=== PATIENT | male | born 1970 | race Caucasian/White ===

== ENCOUNTER → 2018-04-27 | Outpatient (CLI) | payer OTHER ==
--- NOTE | 2018-04-27 10:08 | Diagnostic Imaging Report ---
PROCEDURE: US abdomen complete. TECHNIQUE: Multiple real-time grayscale images were obtained over the abdomen in various projections. INDICATION: Generalized abdominal pain. The pancreas has a normal appearance. The liver is normal in size. No discrete liver mass is identified. Gallbladder is without stones or sludge. No wall thickening or pericholecystic fluid is seen. No biliary duct dilatation is identified. The right and left kidneys are unremarkable. Aorta and IVC are unremarkable. There is no ascites. IMPRESSION: Unremarkable abdominal ultrasound. Dictated by: Dictated on workstation # [id number]
== END ==
LOC: RAD 08:17
PROVIDERS: ATTEND Nurse Practitioner Family
DX: R10.84 Generalized abdominal pain (principal)
CPT/HCPCS: 76700

== ENCOUNTER → 2022-01-05 | Outpatient (CLI) | payer OTHER ==
--- NOTE | 2022-01-05 15:38 | Diagnostic Imaging Report ---
INDICATION: Soft tissue abscess. COMPARISON: Foot exam from same day. FINDINGS: Three views of the right toes were obtained and show no fractures, dislocations, or other acute bony abnormalities. Joint spaces are well maintained throughout. The soft tissues appear unremarkable. No radiopaque foreign bodies are identified. IMPRESSION: Unremarkable radiographic exam of the toes of the right foot. Please note, osteomyelitis cannot be excluded based on radiographs alone. If there is concern for osteomyelitis, MRI is recommended. If MRI is contraindicated, a triple phase bone scan could be performed. Dictated by: Dictated on workstation # [id number]
--- NOTE | 2022-01-05 20:09 | Diagnostic Imaging Report ---
INDICATION: ABSCESS RT FOOT BETWEEN 4/5 TOES SEVERE 4TH TOE BONE PAIN. TECHNIQUE: 3 views of the right foot CORRELATION STUDY: None FINDINGS: No acute fracture. There is slight blunting at the tip of the 5th distal phalanx. The remaining osseous structures are otherwise intact. Joint space is maintained. No abnormal soft tissue gas collection or radiopaque foreign body. IMPRESSION: 1. Slight blunting of the tip of distal 5th phalanx. While this may be normal variation, some degree of bony resorption including osteomyelitis is not excluded. Remaining osseous structures are otherwise intact and unremarkable. Dictated by: Dictated on workstation # [id number]
== END ==
LOC: RAD 13:42
PROVIDERS: ATTEND Nurse Practitioner Family
DX: L02.611 Cutaneous abscess of right foot (principal); M89.8X7 Other specified disorders of bone, ankle and foot
CPT/HCPCS: 73630; 73660

== ENCOUNTER → 2022-01-12 | Outpatient (CLI) | payer OTHER ==
--- NOTE | 2022-01-12 13:00 | Diagnostic Imaging Report ---
Exam: MRI right foot without contrast. Date: January 12, 2022. Indication: 51-year-old male, concern for abscess or ulcer between the fourth and fifth toes of the right foot. Right foot pain. Comparison: Radiographs January 05, 2022. Technique: Multiple noncontrast MRI sequences of the right foot were obtained. Findings: Lisfranc ligament proper is intact. The imaged portions of the peroneal tendons, anterior extensor tendons, and posterior flexor tendons are intact. There is no evidence of tenosynovitis. The visualized portions of the plantar fascia are intact. There is no identified T1 marrow signal loss or bone destruction. There is no identified marrow edema. There is no acute fracture. 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 The additional joint spaces are well preserved. There is no joint effusion. There is no identified abnormal soft tissue edema or focal fluid collection. Sensitivity for detection of abscess is somewhat reduced given lack of intravenous contrast. Impression: 1. No identified focal fluid collection or abscess. 2. No evidence of osteomyelitis. 3. Otherwise identified acute abnormality at the level of the right foot. Dictated by: Dictated on workstation # [id number]
== END ==
LOC: RAD 12:30
PROVIDERS: ATTEND Nurse Practitioner Family
DX: L02.611 Cutaneous abscess of right foot (principal); M86.271 Subacute osteomyelitis, right ankle and foot

== ENCOUNTER → 2023-05-10 | Outpatient (CLI) | payer BC, OTHER ==
[~2023-05-10] MED LIST: CATHETER FLUSH 10 ML SYR IVP PRN
--- NOTE | 2023-05-10 13:18 | Diagnostic Imaging Report ---
INDICATION: Right upper quadrant pain COMPARISON: Abdominal ultrasound of 04/27/2018 TECHNIQUE: Anterior scintigraphic imaging of the abdomen was performed after the intravenous administration of 5.39 mCi Tc-99m Choletec. FINDINGS: The upper abdomen was imaged for 60 minutes with the gamma camera. There is prompt homogeneous uptake of radiopharmaceutical by the liver. There is activity in the common duct and gallbladder by 30 minutes. Small bowel activity is seen by 20 minutes. After 60 minutes, the patient received 8 oz of ensure by mouth. After 60 minutes, the gallbladder ejection fraction was calculated to be 86% which is normal. IMPRESSION: 1. Patent common and cystic bile ducts. 2. No gallbladder dysfunction. Dictated by: Dictated on workstation # [id number]
== END ==
LOC: CARD 08:49
PROVIDERS: ATTEND Surgery
DX: R10.11 Right upper quadrant pain (principal)
CPT/HCPCS: 78227; A9537

== ENCOUNTER 2023-05-18 05:47 | Outpatient (CLI) | payer BC ==
[~2023-05-18] VITALS: Ht 167.7 cm; Wt 70.3 kg
[2023-05-19] MEDS ORDERED: FAMO-119 PO (08:10)
[2023-05-19] MEDS ORDERED: LEVO5TAB12 PO (08:10)
[2023-05-19] MEDS ORDERED: PSYL660P17 PO (08:10)
[2023-05-19] MEDS ORDERED: CLON0.252 PO (08:10)
[2023-05-19] MEDS ORDERED: CALC300T4 PO (08:13)
[2023-05-20] MEDS ORDERED: ACHD5005 PO (10:45)
[2023-05-20] MEDS ORDERED: DOCU-143 PO (10:45)
== END 2023-05-19 08:47 | disposition home or self-care (01) ==
LOC: PREOP 05:47
PROVIDERS: ATTEND Surgery
DX: Z01.818 Encounter for other preprocedural examination (principal)

== ENCOUNTER 2023-05-20 07:30 | Day surgery (SDC) | payer BC ==
[2023-05-20] VITALS (12 sets, daily range): BP systolic 106–141; BP diastolic 67–96
[~2023-05-20] VITALS: Ht 167.7 cm; Wt 70.3 kg
[~2023-05-20 07:30] MED LIST changes: +CALC300T4 PO; -CATHETER FLUSH 10 ML SYR IVP PRN; +CLON0.252 PO; +FAMO-119 PO; +LEVO5TAB12 PO; +PSYL660P17 PO
[2023-05-20] MEDS ORDERED: LIDOCAINE/EPI 1%-1:100,000 (XYLOCAINE) 20ML ONE (07:59)
[2023-05-20] MEDS ORDERED: LACTATED RINGERS 1,000 ML IV PRN (08:30)
[2023-05-20] MEDS ORDERED: ceFAZolin INJECTION 2,000 MG in NS (IVPB) 50 ML IV ONE (08:30)
--- NOTE | 2023-05-20 09:10 | Progress Note-Pre Operative ---
Pre-Operative Progress Note Date H&P Reviewed: May 20, 2023 Time H&P Reviewed: 08:59 History & Physical: H&P Reviewed, Patient Examed, No changes noted Pre-Operative Diagnosis: biliary dyskinesia MOSES DAMON DO May 20, 2023 09:10
[2023-05-20] MEDS ORDERED: fentaNYL INJ 100 MCG/2 ML AMP ONE (09:33)
[2023-05-20] MEDS ORDERED: MIDAZOLAM 2 MG/2 ML (VERSED) VIAL ONE (09:33)
[2023-05-20] MEDS ORDERED: ONDANSETRON 4 MG/2 ML (SDV) Z0FRAN ONE (10:39)
[2023-05-20] MEDS ORDERED: LIDOCAINE PF 2% 5 ML (XYLOCAINE) VIAL ONE (10:39)
[2023-05-20] MEDS ORDERED: ROCURONIUM 50 MG/5 ML (ZEMURON) VIAL IV ONE (10:39)
[2023-05-20] MEDS ORDERED: proPOfol 200 MG/20 ML (DIPRIVAN) VIAL IV ONE (10:39)
--- NOTE | 2023-05-20 10:44 | Progress Note-Post Operative ---
Post-Operative Progess Note Surgeon (s)/Elementary Education Teacher (s) Surgeon MOSES DAMON DO Elementary Education Teacher: Dr. Landaverde to assist in retraction dissection and closure. Pre-Operative Diagnosis biliary dyskinesia Post-Operative Diagnosis same Procedure & Operative Findings Date of Procedure 05/20/23 Procedure Performed/Findings PROCEDURE: Laparoscopic cholecystectomy with intraoperative cholangiogram. COMPLICATIONS: None. PROCEDURE: The patient was taken to the operating suite and was prepped and draped in sterile fashion. A surgical pause was performed. Just superior to the umbilicus, a 12 mm incision was made. Dissection was taken down to the fascia, which was then scored and grasped with a Valerie and the abdomen was then entered. A 0 Vicryl suture was placed in a wffiqn-tz-ofdtw fashion and a Yanez trocar was placed and secured. Pneumoperitoneum was achieved. A 5mm trochar place in the subxyphoid and 2 in the right upper quadrant. The gallbladder was then grasped and elevated. Adhesions to the gallbladder were taken down with blunt and cautery dissection. The cystic duct, and cystic artery were then dissected out. Clip was placed on the distal portion of the cystic duct which was then partially transected. An arrow catheter was inserted into the duct. The cholangiogram was then performed. No filing defects and contrast made its way into the duodenum. Catheter removed. Clips were placed on proximal portion of the cystic duct and then the duct was then transected. Clips were placed along the proximal and distal portion of the cystic artery which was then transected. Hook cautery was used to dissect the gallbladder from the gallbladder fossa achieving hemostasis. The gallbladder was placed in an Endobag and removed through the 12 mm trocar site. The abdomen was then reinspected. Copious amounts of irrigation were used to irrigate the abdomen and there were no signs of active bleeding. Hemostasis had been achieved. The 12 mm fascial defect was then closed with 0 Vicryl suture that had been placed in a [id number] fashion. The abdomen was then desufflated, the trocars were removed. The abdomen was then washed and dried. The skin was then closed using 4-0 Monocryl in a subcuticular fashion. The abdomen was washed and dried and Skin Affix was place over incisions. Patient tolerated the procedure well without any complications and was taken to the recovery room in stable condition. Anesthesia Type general Estimated Blood Loss Estimated blood loss (mL): minimal Specimens/Packing Specimens Removed gallbladder MOSES DAMON DO May 20, 2023 10:44
[2023-05-20] MEDS ORDERED: DOCU-143 PO (10:45)
[2023-05-20] MEDS ORDERED: ACHD5005 PO (10:45)
--- NOTE | 2023-05-20 10:46 | Discharge Inst-Simple/Standard ---
Discharge Inst-Standard Discharge Medications New, Converted or Re-Newed RX: Transmitted to Pharmacy Patient Instructions/Follow Up Plan of Care/Instructions/FU: 2 weeks cara Activity as Tolerated: No Discharge Diet: Regular Diet Other Inst to Patient Follow up Appt: Make appointment for 2 weeks. Instructions: No lifting greater than 10 pounds. No strenuous activity. May shower in 24 hours, no tub bath or soaking. Use incentive spirometer at home as directed. No Smoking Skin/Wound Care: You have special glue over incision, it will fall off on it's own. Symptoms to Report: Appetite Changes, Extremity Discoloration, Numbness/Tingling, Swelling Increased, Bleeding Excessive, Eyesight Changes, Pain Increased, Urine Color Change, Constipation(Persistent), Fever over 101 degree F, Pain/Pressure in chest, Urinating Difficulty, Cough Up/Vomit Blood, Heart Beat Irreg/Pounding, Pain/Pressure in jaw, Vaginal Bleeding Increase, Cramps in feet or legs, Lightheadedness, Pain/Pressure in shoulder, Diarrhea(Persistent), Memory Changes Suddenly, Questions/Concerns, Weight gain consecutive days, Dizziness/Fainting, Nausea/Vomiting, Shortness of Breath, Weight gain over 2 pounds. If eyes or skin turn yellow notify physician. If questions or concerns contact your physician Or seek help at emergency department. MOSES DAMON DO May 20, 2023 10:46
[2023-05-20] MEDS ORDERED: GLYCOPYRROLATE 0.2 MG/ML (ROBINUL) 2 ML VIAL ONE (10:49)
[2023-05-20] MEDS ORDERED: NEOSTIGMINE (BLOXIVERZ ) 1 MG/1ML 10 ML VIAL ONE (10:49)
[2023-05-20] MEDS ORDERED: SEVOFLURANE (ULTANE) 15 ML INHAL SOLN ONE (10:56)
--- NOTE | 2023-05-20 11:09 | Anesthesia-General Post-Op ---
General Patient Condition Mental Status/LOC: Same as Preop Cardiovascular: Satisfactory Nausea/Vomiting: Absent Respiratory: Satisfactory Pain: Controlled Complications: Absent Post Op Complications Complications None Follow Up Care/Instructions Patient Instructions None needed. Anesthesia/Patient Condition Patient Condition Patient is doing well, no complaints, stable vital signs, no apparent adverse anesthesia problems. No complications reported per nursing. CHIP VICENTE CRNA May 20, 2023 11:08
[2023-05-20] MEDS ORDERED: morphine INJ 10 MG/ML 1ML (SYR OR VIAL) IVP ONE (11:15)
[2023-05-20] MEDS ORDERED: fentaNYL INJ 100 MCG/2 ML AMP IVP ONE (11:15)
[2023-05-20] MEDS ORDERED: ONDANSETRON 4 MG/2 ML (SDV) Z0FRAN IVP PRN (11:15)
[2023-05-20] MEDS ORDERED: HYDROcodone/APAP 5 MG/325 MG (LORTAB) TAB PO ONE (13:00)
[2023-05-20] MEDS ORDERED: HYDROcodone/APAP 5 MG/325 MG (LORTAB) TAB ONE (13:02)
--- NOTE | 2023-05-20 16:59 | Diagnostic Imaging Report ---
EXAMINATION: Intraoperative cholangiogram. TECHNIQUE: Intraoperative cholangiogram. HISTORY: Cholecystectomy COMPARISON: None available. FINDINGS/ impression: Intraoperative cholangiogram demonstrates no filling defect or contrast extravasation. Fluoroscopy time: 10.9 seconds dose: 5.5 mgy Dictated by: Dictated on workstation # [id number]
== END 2023-05-20 13:20 | disposition home or self-care (01) ==
LOC: SDC 07:30
PROVIDERS: ATTEND Surgery
DX: K82.8 Other specified diseases of gallbladder (principal); K81.1 Chronic cholecystitis; F17.210 Nicotine dependence, cigarettes, uncomplicated
CPT/HCPCS: 76000; 87081; 88304; 94664

== ENCOUNTER 2023-07-06 05:33 | Outpatient (CLI) | payer BC ==
[~2023-07-06] VITALS: Ht 167.6 cm; Wt 70.3 kg
[~2023-07-06 05:33] MED LIST changes: +ACHD5005 PO; +DOCU-143 PO
[2023-07-06] MEDS ORDERED: PANT40TA2 PO (12:37)
[2023-07-06] MEDS ORDERED: CARI1.5C PO (12:37)
== END 2023-07-06 15:04 | disposition home or self-care (01) ==
LOC: PREOP 05:33
PROVIDERS: ATTEND Surgery
DX: Z01.818 Encounter for other preprocedural examination (principal)

== ENCOUNTER 2023-07-19 08:07 | Day surgery (SDC) | payer BC ==
[~2023-07-19] VITALS: Ht 167 cm; Wt 70.3 kg
[~2023-07-19 08:07] MED LIST changes: +CARI1.5C PO; +PANT40TA2 PO
[2023-07-19] MEDS ORDERED: LACTATED RINGERS 1,000 ML 1,000 ML IV STA (08:08)
[2023-07-19] MEDS ORDERED: HURRICAINE EXT TUBE (BENZOCAINE) XX PRN (08:15)
[2023-07-19 08:25] VITALS: BP 119/95
--- NOTE | 2023-07-19 09:09 | Progress Note-Post Operative ---
Post-Operative Progess Note Surgeon (s)/Convict Guard (s) Surgeon MOSES DAMON DO Convict Guard: NA Pre-Operative Diagnosis GERD, screening colonscopy Post-Operative Diagnosis Gastritis Sigmoid polyp Procedure & Operative Findings Date of Procedure 07/19/23 Procedure Performed/Findings EGD wuth biopsy Colonoscopy hot biopsy polypectomy x1 Anesthesia Type per BIOMEDICAL SERVICE ENGINEER Estimated Blood Loss Estimated blood loss (mL): none Specimens/Packing Specimens Removed antrum GE and polyp MOSES DAMON DO Jul 19, 2023 09:09
[2023-07-19 09:10] VITALS: BP 102/69
[2023-07-19] MEDS ORDERED: SUCR1TAB36 PO (09:10)
--- NOTE | 2023-07-19 09:11 | Discharge Inst-Simple/Standard ---
Discharge Inst-Standard Discharge Medications New, Converted or Re-Newed RX: Transmitted to Pharmacy Patient Instructions/Follow Up Plan of Care/Instructions/FU: 2 weeks Andi Activity as Tolerated: Yes Discharge Diet: Regular Diet MOSES DAMON DO Jul 19, 2023 09:11
[2023-07-19 09:15] VITALS: BP 100/72
[2023-07-19 09:20] VITALS: BP 113/77
[2023-07-19 10:00] VITALS: BP 115/95
--- NOTE | 2023-07-19 12:59 | Anesthesia-General Post-Op ---
MAC Patient Condition Mental Status/LOC: Same as Preop Cardiovascular: Satisfactory Nausea/Vomiting: Absent Respiratory: Satisfactory Pain: Controlled Complications: Absent Post Op Complications Complications None Follow Up Care/Instructions Patient Instructions None needed. Anesthesiology Discharge Order Discharge Order Patient is doing well, no complaints, stable vital signs, no apparent adverse anesthesia problems. No complications reported per nursing. CHIP VICENTE CRNA Jul 19, 2023 12:59
--- NOTE | 2023-07-19 13:50 | OPERATIVE REPORT ---
DATE OF SERVICE: 07/19/2023 PREOPERATIVE DIAGNOSES: Gastroesophageal reflux disease, screening colonoscopy. POSTOPERATIVE DIAGNOSES: Gastritis, sigmoid polyp. SURGEON: Moses Escamilla DO ANESTHESIA: Per MOLD CAR PUSHER. ESTIMATED BLOOD LOSS: None. COMPLICATIONS: None. PROCEDURES: EGD with biopsies, colonoscopy with hot biopsy polypectomy x1. ESTIMATED BLOOD LOSS: None. COMPLICATIONS: None. INDICATIONS: The patient is a 53-year-old male with GERD symptoms and needing for a colonoscopy. He understands risks and benefits of procedure and wishes to proceed. Consent was signed in chart. DESCRIPTION OF PROCEDURE: The patient was taken to the endoscopy suite, placed in left lateral recumbent position. Timeout was performed. Scope was inserted in the mouth, down the esophagus, stomach and into the duodenum without difficulty. There were no polyps, masses or ulcerations within the duodenum. Scope was slowly retracted back into stomach where it was further insufflated. Erythematous changes consistent with some slight gastritis present. Biopsies of the antrum were obtained. Scope was retroflexed noting no other pathology. Scope was returned to its normal position, slowly withdrawn until the distal esophagus. Biopsy of GE junction was obtained. Scope was slowly retracted back until completely remove noting no other pathology. Digital rectal exam was performed. No palpable polyps, masses or ulcerations. Scope was inserted in the rectum all the way to the cecum with minimal difficulty. Prep was adequate. Scope was slowly retracted back. No polyps, masses or ulcerations in the cecum, ascending, transverse, descending and sigmoid colon. In the sigmoid colon, a small polyp present, which hot [ ]. Scope was then slowly retracted back into the rectum, where it was also retroflexed noting no other pathology. The scope was then returned to its normal position, slowly withdrawn until completely removed. The patient tolerated the procedure well without complications, taken to recovery room in stable condition. RECOMMENDATIONS: The patient will continue on current medications, which he is on Protonix. We will add Carafate 1 gram 4 times a day. He will follow up in 2 weeks to discuss pathology results and will need repeat colonoscopy in 5 years due to colon polyps. Any issues before that, be seen at that time. Job ID: [id number] DocumentID: [id number] Dictated Date: 07/19/2023 09:11:01 Verification Rep Date: 07/19/2023 13:48:00 Dictated By: MOSES ESCAMILLA DO
== END 2023-07-19 10:05 | disposition home or self-care (01) ==
LOC: ENDO 08:07
PROVIDERS: ATTEND Surgery
DX: Z12.11 Encounter for screening for malignant neoplasm of colon (principal); K63.5 Polyp of colon; K29.70 Gastritis, unspecified, without bleeding; K31.89 Other diseases of stomach and duodenum; K21.00 Gastro-esophageal reflux disease with esophagitis, without bleeding; F17.210 Nicotine dependence, cigarettes, uncomplicated; Z79.899 Other long term (current) drug therapy